=== PATIENT | male | born 1990 | race Caucasian/White ===

== ENCOUNTER 2016-09-24 02:12 | Emergency (ER) | payer MEDICAID ==
[~2016-09-24] VITALS: Ht 172.7 cm; Wt 66.5 kg
[2016-09-24 02:18] VITALS: Ht 172.7 cm; Wt 66.5 kg
[2016-09-24] MEDS ORDERED: ACETAMINOPHEN 325 MG TAB PO ONE (03:00)
--- NOTE | 2016-09-24 04:03 | RADRPT ---
PROCEDURE: XR Hand. CLINICAL INDICATION: Injury TECHNIQUE: Three views of the left hand were obtained. COMPARISON: No prior studies are available for comparison. FINDINGS: Nondisplaced comminuted intra-articular fracture at base of 3rd metacarpal with dorsal soft tissue s welling. No dislocation is seen. IMPRESSION: Nondisplaced comminuted intra-articular fracture at base of 3rd metacarpal with dorsal soft tissue s welling. RPTAT: HJES .Ye Lott MD, MD Date Time Electronically viewed and signed by .Ye Lott MD, on 09/24/2016 04:03 .S/
[2016-09-24] MEDS ORDERED: ACET325T33 PO (04:19)
[2016-09-24] MEDS ORDERED: IBUP-1542 PO (04:19)
--- NOTE | 2016-09-24 04:28 | ERD ---
ER Documentation Chief Complaint Date/Time DATE: 09/24/16 TIME: 04:24 Chief Complaint L hand pain after falling [place] 3 stairs. Bruising and deformity noted HPI He admits to having some restricted range of motion this is a 25-year-old male presenting to the emergency room complaining of left dorsal hand pain status post falling on the stairs and hitting his left hand on the ground with a closed fist. Patient states the pain is moderate in severity. He states that he is taking ibuprofen 3-1/2 hours ago without much relief. Patient denies any numbness or tingling. ROS All systems reviewed and are negative except as per history of present illness. Medications Home Meds Active Scripts Acetaminophen* (Tylenol*) 325 Mg Tablet, 2 TAB PO Q6 Y for PAIN AND OR ELEVATED TEMP, #30 TAB Prov:CRISTINO MARIO PA-C 09/24/16 Ibuprofen* (Motrin*) 600 Mg Tab, 600 MG PO Q6H Y for PAIN AND OR ELEVATED TEMP, #30 TAB Prov:CRISTINO MARIO PA-C 09/24/16 PMhx/Soc Medical and Surgical Hx: pt denies Medical Hx, pt denies Surgical Hx Hx Alcohol Use: No Hx Substance Use: No Hx Tobacco Use: No Physical Exam Vitals Vital Signs Date Time Temp Pulse Resp B/P Pulse Ox O2 Delivery O2 Flow Rate FiO2 09/24/16 02:18 98.9 90 16 132/82 97 Physical Exam General: WD/WN, in no apparent distress, non-toxic appearing HENT: NC/AT Eyes: Conjunctiva normal Neck: Supple Pulm: Clear to auscultation, normal labored breathing; no wheezing/rales/ rhonchi heard CV: Good capillary refill GI: Non-distended, no guarding Back: No masses Ext: left dorsal hand swelling and tenderness at the base of the metacarpals.restricted ROM Neuro: Moves on all fours Skin: intact Psych: Normal mood Results 24 hrs Current Medications Medications (Trade) Dose Ordered Sig/Osmin Route PRN Reason Start Time Stop Time Status Last Admin Dose Admin Acetaminophen (Tylenol Tab) 650 mg ONCE ONCE PO 09/24/16 03:00 09/24/16 03:01 DC 09/24/16 02:49 Procedures/MDM This is a 25-year-old male presenting to the emergency department complaining of left dorsal hand pain status post falling down the stairs and having a contusion to the left hand with a closed fist. X-ray of the left hand was done and patient was found to have a nondisplaced comminuted intra-articular fracture at base of 3rd metacarpal with dorsal soft tissue swelling. No dislocation is seen. Patient was given Tylenol in the ED. Patient was placed in a volar splint with good fit. An arm sling was provided. He was neurovascular intact pre-and post treatment. I discussed the patient that he needs to follow-up with his primary care physician to get a referral to see orthopedist or he can follow [facility]. A prescription for ibuprofen Tylenol was provided. I discussed to return to the ER for any worsening signs or symptoms. Patient understands and agrees with this plan. Departure Diagnosis: Primary Impression: Metacarpal bone fracture Condition: Fair Patient Instructions: Treating Hand Fractures Referrals: [facility] Additional Instructions: FOLLOW UP WITH YOUR PRIMARY CARE PHYSICIAN TOMORROW.Return to this facility if you are not improving as expected. SPECIALIST: YOU HAVE A MEDICAL CONDITION WHICH REQUIRES YOU TO SEE A SPECIALIST WITHIN THE NEXT 1-2 DAYS. PLEASE FOLLOW UP WITH YOUR PRIMARY PHYSICIAN FOR REFFERAL.IF YOU DO NOT HAVE A PRIMARY CARE PHYSICIAN AND/OR YOU CAN NOT AFFORD TO SEE A PHYSICIAN THE FOLLOWING RESOURCES HAVE BEEN SUPPLIED TO YOU. IT IS YOUR RESPONSIBILITY TO BE SEEN BY THE SPECIALIST Take all medicines as directed. Return to this facility if you are not improving as expected. CRISTINO MARIO PA-C Sep 24, 2016 04:28
== END 2016-09-24 04:43 | disposition home or self-care (01) ==
LOC: FTE 02:12 → EDSEX 02:12 → FTE 04:43
DX: S62.303A Unspecified fracture of third metacarpal bone, left hand, initial encounter for closed fracture (principal); W10.9XXA Fall (on) (from) unspecified stairs and steps, initial encounter; Y92.9 Unspecified place or not applicable